=== PATIENT | male | born 1960 | race African-American/Black ===

== ENCOUNTER 2016-12-08 15:55 | Emergency (ER) | payer OTHER ==
[~2016-12-08] VITALS: Ht 175.3 cm; Wt 62.6 kg
[2016-12-08] MEDS ORDERED: TYLENOL EXTRA500 M2 PO (17:13)
--- NOTE | 2016-12-08 18:10 | ED GENERAL ADULT ---
See Addendum History of Present Illness General Chief Complaint: General Adult Stated Complaint: BILATERAL LEG, ARM AND FOOT SWELLING Source: patient, old records Exam Limitations: no limitations Vital Signs & Intake/Output Vital Signs & Intake/Output Vital Signs Date Time Temp Pulse Resp B/P Pulse O2 O2 Flow FiO2 Ox Delivery Rate 12/08 1734 98 Room Air 12/08 1602 97.1 100 16 153/95 98 Allergies Coded Allergies: No Known Allergies (12/08/16) Reconcile Medications Acetaminophen (Tylenol Extra Strength) 500 MG TABLET 2 TAB PO PRN PAIN ( Reported) Baclofen 10 MG TABLET 1 TAB PO TIDPRN PRN muscle spasm/strain Ibuprofen 600 MG TABLET 1 TAB PO Q6PRN PRN pain with food Tramadol HCl (Ultram) 50 MG TABLET 1-2 TAB PO Q6PRN PRN severe pain Triage Note: PT STATES HE HAS BILAT UPPER AND LOWER EXT. SWELLING WITH PAIN THAT STARTED 1 WEEK AGO. Triage Nurses Notes Reviewed? yes Onset: 2 years Duration: constant, continues in ED, 2 years Timing: recent history Severity: moderate Modifying Factors: Worsens With: movement. HPI: 2 years prior to admission patient had right hip surgery for arthritis and developed generalized pain to his muscles knees arms shoulders and back. Reports visiting local clinics with medication prescribed for arthritis that were ineffective. He denies fever chills nausea vomiting diarrhea abdominal pain chest pain shortness breath headache dysuria rash bleeding. Past History Travel History Traveled to [place] past 21 day No Medical History Any Pertinent Medical History? see below for history Neurological: NONE EENT: NONE Cardiovascular: NONE Respiratory: NONE Gastrointestinal: GERD Hepatic: NONE Renal: NONE Musculoskeletal: rheumatoid arthritis Psychiatric: NONE Endocrine: NONE Blood Disorders: NONE Cancer(s): NONE Surgical History Surgical History: non-contributory Psychosocial History What is your primary language Ghanaian Tobacco Use: Current Daily Use Daily Tobacco Use Amount/Type: => 5 Cigarettes daily ETOH Use: occasional use Illicit Drug Use: denies illicit drug use Family History Hx Contributory? No Review of Systems Review of Systems Constitutional: Reports: no symptoms. EENTM: Reports: no symptoms. Respiratory: Reports: no symptoms. Cardiovascular: Reports: no symptoms. GI: Reports: no symptoms. Genitourinary: Reports: no symptoms. Musculoskeletal: Reports: see HPI, joint pain, muscle pain. Skin: Reports: no symptoms. Neurological/Psychological: Reports: no symptoms. Hematologic/Endocrine: Reports: no symptoms. Immunologic/Allergic: Reports: no symptoms. All Other Systems: Reviewed and Negative Physical Exam Physical Exam General Appearance: well developed/nourished, alert, awake, anxious, mild distress, thin Head: atraumatic, normal appearance Eyes: Bilateral: normal appearance, PERRL, EOMI. Ears, Nose, Throat: normal pharynx, normal ENT inspection Neck: normal inspection, supple, full range of motion, no midline tenderness Respiratory: normal breath sounds, chest non-tender, no respiratory distress, quiet respiration, lungs clear Cardiovascular: regular rate/rhythm, normal peripheral pulses, norml femoral pulses equa Peripheral Pulses: 4+ carotid (R), 4+ carotid (L) Gastrointestinal: normal bowel sounds, soft, non-tender, no organomegaly Back: normal inspection, normal range of motion, no vertebral tenderness Extremities: normal inspection, normal capillary refill, normal range of motion, no edema, no ligament instability Neurologic/Psych: no motor/sensory deficits, awake, alert, oriented x 3, normal gait, normal mood/affect, developing machine tender II-XII nml as tested Reflexes: 2+: bicep (R), bicep (L). Skin: intact, normal color, warm/dry Lymphatic: no anterior cervical gracie Core Measures ACS in differential dx? No CVA/TIA Diagnosis: No Severe Sepsis Present: No Septic Shock Present: No Progress Differential Diagnoses I considered the following diagnoses in my evaluation of the patient: rheumatoid vs osteoarthritis Plan of Care: Orders Procedure Date/time Status URINALYSIS 12/08 173 Complete MAGNESIUM 12/08 173 Active HIGH SENSITIVITY CRP 12/08 1736 Active COMPREHENSIVE METABOLIC PANEL 12/08 1736 Active CBC WITHOUT DIFFERENTIAL 12/08 1736 Complete Laboratory Tests 12/08/16 1815: CBC w Diff NO MAN DIFF REQ, RBC 4.06 L, MCV 92.9, MCH 29.9, RDW 15.0 H, MPV 7.1 L, Gran % 76.6 H, Lymphocytes % 17.0 L, Monocytes % 5.2, Eosinophils % 0.8, Basophils % 0.4, Absolute Granulocytes 6.3, Absolute Lymphocytes 1.4, Absolute Monocytes 0.4, Absolute Eosinophils 0.1, Absolute Basophils 0, PUBS MCHC 32.2 L 12/08/16 1749: Urine Color YEL, Urine Clarity CLEAR, Urine pH 6.0, Ur Specific [place] 1.025, Urine Protein NEG, Urine Ketones NEG, Urine Nitrite NEG, Urine Bilirubin NEG, Urine Urobilinogen 1.0, Ur Leukocyte Esterase NEG, Ur Microscopic EXAM NOT REQUIRED, Urine Hemoglobin NEG, Urine Glucose NEG Initial ED EKG: none Hand-Off Endorsed To: SILVERIO POWELL,JUDY Garrett Endorsed Time: 1927 Pending: labs Departure Departure Disposition: HOME OR SELF CARE Condition: Stable Clinical Impression Primary Impression: Myalgia Secondary Impressions: Arthralgia Qualifiers: Joint pain location: unspecified Qualified Code: M25.50 - Pain in unspecified joint Referrals: PATIENT HAS NO PRIMARY CARE DR (PCP/Family) Departure Forms: Customer Survey General Discharge Information Prescriptions: Current Visit Scripts Ibuprofen 1 TAB PO Q6PRN PRN pain #50 TAB with food Baclofen 1 TAB PO TIDPRN PRN muscle spasm/strain #30 TAB Tramadol HCl (Ultram) 1-2 TAB PO Q6PRN PRN severe pain #30 TAB Critical Care Note Critical Care Note Critical Care Time: non-applicable
[2016-12-08 18:42] LABS: ABSOLUTE BASOPHIL COUNT 0 /CUMM (0.0-0.2); ABSOLUTE EOSINOPHIL COUNT 0.1 /CUMM (0.0-0.7); ABSOLUTE GRANULOCYTE CT 6.3 /CUMM (1.4-6.5); ABSOLUTE LYMPH COUNT 1.4 /CUMM (1.2-3.4); ABSOLUTE MONOCYTE COUNT 0.4 /CUMM (0.10-0.60); BASOPHIL % 0.4 % (0.0-2.0); EOSINOPHIL % 0.8 % (0-5); GRANULOCYTE % 76.6 % (42.2-75.2); HEMATOCRIT 37.7 % (42-52); MEAN CORPUSCULAR HGB 29.9 PG (27.0-31.0); MEAN CORPUSCULAR HGB CONC 32.2 G/DL (33.0-37.0); MEAN CORPUSCULAR VOLUME 92.9 FL (80.0-94.0); MEAN PLATELET VOLUME 7.1 FL (7.4-10.4); PLATELET COUNT 478 /CUMM (130-400); RED BLOOD CELL CT 4.06 /CUMM (4.70-6.10); WHITE BLOOD CELL COUNT 8.2 /CUMM (4.8-10.8)
[2016-12-08] MEDS ORDERED: ULTRAM50 M1 PO (19:26)
[2016-12-08] MEDS ORDERED: IBUPROFEN600 M1 PO (19:26)
[2016-12-08] MEDS ORDERED: BACLOFEN10 M1 PO (19:26)
[2016-12-08] MEDS ORDERED: PREDNISONE20 M1 PO (19:29)
[2016-12-08 20:00] VITALS: BP 164/87
== END 2016-12-08 20:59 ==
LOC: ERH 15:55
PROVIDERS: Emergency Medicine
DX: M79.1 Myalgia (principal); M25.50 Pain in unspecified joint; R79.82 Elevated C-reactive protein (CRP)
CPT/HCPCS: 81003